=== PATIENT | female | born 1955 | race Caucasian/White ===

== ENCOUNTER 2020-12-28 15:57 | Outpatient (CLI) | payer BC | END 2020-12-28 15:58 | disposition home or self-care (01) | LOC: BICMAMMO 15:57 | PROVIDERS: ATTEND Family Medicine | DX: Z12.31 Encounter for screening mammogram for malignant neoplasm of breast (principal); Z80.3 Family history of malignant neoplasm of breast; Z85.3 Personal history of malignant neoplasm of breast; Z98.890 Other specified postprocedural states | CPT/HCPCS: 77063; 77067 ==

== ENCOUNTER 2023-11-10 12:12 | Outpatient (CLI) | payer MEDICARE | END 2023-11-10 12:13 | disposition home or self-care (01) | LOC: BICMAMMO 12:12 | PROVIDERS: ATTEND Family Medicine | DX: Z12.31 Encounter for screening mammogram for malignant neoplasm of breast (principal); Z80.3 Family history of malignant neoplasm of breast; Z85.3 Personal history of malignant neoplasm of breast; Z98.890 Other specified postprocedural states | CPT/HCPCS: 77067 ==

== ENCOUNTER 2024-01-31 12:27 | Outpatient (CLI) | payer MEDICARE ==
[~2024-01-31 12:27] MED LIST: Magnevist 469MG/ML 20 ML VIAL ONE
== END 2024-01-31 12:28 | disposition home or self-care (01) ==
LOC: BICMRI 12:27
PROVIDERS: ATTEND Family Medicine
DX: Z01.89 Encounter for other specified special examinations (principal); Z82.49 Family history of ischemic heart disease and other diseases of the circulatory system; I77.89 Other specified disorders of arteries and arterioles
CPT/HCPCS: 36415; 70544; 70549; 82565

== ENCOUNTER 2024-02-20 14:04 | Outpatient (CLI) | payer MEDICARE | END 2024-02-20 14:05 | disposition home or self-care (01) | LOC: BICULT 14:04 | PROVIDERS: ATTEND Family Medicine | DX: R93.89 Abnormal findings on diagnostic imaging of other specified body structures (principal) | CPT/HCPCS: 93880 ==

== ENCOUNTER 2024-03-24 14:02 | Emergency (ER) | payer MEDICARE | END 2024-03-24 16:07 | disposition home or self-care (01) | LOC: ERS 14:02 | DX: S70.02XA Contusion of left hip, initial encounter (principal); W01.0XXA Fall on same level from slipping, tripping and stumbling without subsequent striking against object, initial encounter | CPT/HCPCS: 99283 ==

== ENCOUNTER 2024-09-25 14:56 | Inpatient (IN) | payer MEDICARE ==
[2024-09-25] MEDS ORDERED: Iopamidol-370 76% 500 ML MDV (1 ML CHARGE) ONE (15:32)
[2024-09-25 15:34] LABS: Hematocrit 42.9 % (36.0-47.0); Hemoglobin 13.8 g/dL (12.0-16.0); Mean Corpuscular Hemoglobin 32.1 pg (27.0-31.0); Mean Corpuscular Volume 99.8 fL (78.0-98.0); Platelet Count 204 10x3/uL (130-400); Red Blood Cell (RBC) Count 4.30 mill/uL (4.20-5.40); White Blood Cell (WBC) Count 9.72 10x3/uL (4.8-10.8)
[2024-09-25 15:40] LABS: Actual Bicarbonate (HCO3v) 26.0 mEq/L (22-28); Base Excess 1.0 mEq/L (-2.0 to +3.0); Calcium, Ionized (venous) 1.27 mmol/L (1.16-1.32); Chloride (VBG) 100 mmol/L (98-106); Hematocrit-VBG 44 % (36.0-47.0); Hemoglobin (Hb) 15.1 g/dL (11.7-16.1); Potassium (VBG) 3.75 mmol/L (3.70-5.30); Sodium 141 mmol/L (133-146)
[2024-09-25] MEDS ORDERED: Ketorolac Tromethamine 30 MG (1 mL) VIAL ONE (15:50)
[2024-09-25 15:54] LABS: ALT (SGPT) 29 U/L (Less than 34); AST (SGOT) 35 U/L (11-34); Albumin 4.4 g/dL (3.1-4.5); Alkaline Phosphatase 58 U/L (40-110); Anion Gap 18 mmol/L (10-20); BUN (Urea Nitrogen) 13 mg/dL (9.8-20.1); Bilirubin, Total 0.4 mg/dL (0.3-1.2); Calc. Creatinine Clearance 0 mL/min (70-130); Calcium 10.8 mg/dL (7.8-10.44); Carbon Dioxide 24 mmol/L (23-31); Chloride 101 mmol/L (98-107); Globulin 3.9 g/dL (2.4-3.5); Glucose 226 mg/dL (83-110); Potassium 3.6 mmol/L (3.5-5.1); Sodium 139 mmol/L (136-145)
[2024-09-25 15:58] LABS: Platelet Adequacy Comment Platelets Normal; Polychromasia SLIGHT = 2-3 cells HPF (0-2)
[2024-09-25 17:17] LABS: Bacteria/HPF None Seen HPF (None Seen); CAUTI Indications for Culture Pelvic or flank pain; Glucose, Urine (Dipstick) Normal (Negative); Leukocyte Negative Leu/uL (Negative); Protein, Urine (Dipstick) Negative (Neg-Trace); RBC/HPF 0-3 HPF (0-3); Specific Gravity, Urine 1.024 (1.002-1.036); WBC/HPF 0-3 HPF (0-3)
[2024-09-25 17:25] LABS: Urine Culture Reflex No No
[2024-09-25] MEDS ORDERED: Ondansetron PF 4 MG/2 ML Vial IVP PRN (17:47)
[2024-09-25] MEDS ORDERED: Acetaminophen 325 MG TAB PO PRN (17:47)
[2024-09-25] MEDS ORDERED: Melatonin 3 MG TAB PO PRN (17:47)
[2024-09-26 04:32] VITALS: BMI 29.2
[2024-09-26 07:19] LABS: Anion Gap 12 mmol/L (10-20); BUN (Urea Nitrogen) 10 mg/dL (9.8-20.1); Calc. Creatinine Clearance 112 mL/min (70-130); Calcium 8.8 mg/dL (7.8-10.44); Carbon Dioxide 24 mmol/L (23-31); Chloride 106 mmol/L (98-107); Glucose 159 mg/dL (83-110); Potassium 3.7 mmol/L (3.5-5.1); Sodium 138 mmol/L (136-145)
[2024-09-26 07:22] LABS: Hematocrit 38.4 % (36.0-47.0); Hemoglobin 12.1 g/dL (12.0-16.0); Mean Corpuscular Hemoglobin 32.7 pg (27.0-31.0); Mean Corpuscular Volume 103.8 fL (78.0-98.0); Platelet Count 145 10x3/uL (130-400); Red Blood Cell (RBC) Count 3.70 mill/uL (4.20-5.40); White Blood Cell (WBC) Count 6.85 10x3/uL (4.8-10.8)
[2024-09-26 08:08] VITALS: TEMP 98.2
[2024-09-26 08:33] LABS: Giant Platelets 0.9 % (0-5); Macrocytosis SLIGHT = 6-15 cells HPF (0-5); Platelet Adequacy Comment Platelets Normal; Polychromasia SLIGHT = 2-3 cells HPF (0-2); Smudge Cells 15.9 %
[2024-09-26] MEDS: Enoxaparin 40 MG (0.4 mL) SYRINGE SC SCH (08:33)
[2024-09-26 12:54] VITALS: BP 144/85
== END 2024-09-26 14:42 | disposition home or self-care (01) | DRG 872 ==
LOC: ERS 14:56 → T4-A 17:23
PROVIDERS: ADMIT Internal Medicine; ATTEND Internal Medicine
DX: A41.9 Sepsis, unspecified organism (principal); K57.32 Diverticulitis of large intestine without perforation or abscess without bleeding; K57.92 Diverticulitis of intestine, part unspecified, without perforation or abscess without bleeding; E78.5 Hyperlipidemia, unspecified; E78.00 Pure hypercholesterolemia, unspecified; L40.0 Psoriasis vulgaris; I10 Essential (primary) hypertension; I83.90 Asymptomatic varicose veins of unspecified lower extremity; F10.90 Alcohol use, unspecified, uncomplicated; Z98.890 Other specified postprocedural states; Z85.3 Personal history of malignant neoplasm of breast; Z90.49 Acquired absence of other specified parts of digestive tract; Z98.51 Tubal ligation status; Z88.8 Allergy status to other drugs, medicaments and biological substances; Z88.1 Allergy status to other antibiotic agents; Z79.899 Other long term (current) drug therapy; Z79.890 Hormone replacement therapy; Z79.51 Long term (current) use of inhaled steroids; R68.83 Chills (without fever)
CPT/HCPCS: 36415; 74177; 80048; 80053; 81001; 82805; 83605; 85025; 87040; 87086; 87635; 94760; 96374; 96375; J1650; J1885; J2543; Q9967

== ENCOUNTER 2024-11-14 14:54 | Outpatient (CLI) | payer MEDICARE | END 2024-11-14 14:55 | disposition home or self-care (01) | LOC: BICMAMMO 14:54 | PROVIDERS: ATTEND Family Medicine | DX: Z12.31 Encounter for screening mammogram for malignant neoplasm of breast (principal); Z80.3 Family history of malignant neoplasm of breast; Z85.3 Personal history of malignant neoplasm of breast; Z98.890 Other specified postprocedural states | CPT/HCPCS: 77063; 77067 ==